=== PATIENT | male | born 1945 | race Hispanic/Latino ===

== ENCOUNTER 2019-05-16 11:30 | Day surgery (SDC) | payer OTHER, SELFPAY ==
[2019-05-16] VITALS (8 sets, daily range): BP systolic 120–155; BP diastolic 68–85; PULSE 61–90; RESP 14–20; TEMP 36.6–37.1; O2SAT 95–97; BMI 33.7
--- NOTE | 2019-05-16 | DI.RAD.S_ITS ---
PROCEDURE: XR KUB INDICATIONS: LEFT URETAL STENT TECHNIQUE: One view of the abdomen acquired. COMPARISON: None. FINDINGS: Single spot fluoroscopic image demonstrating partially visualized left ureteral stent. Dictated by: Tarik Crowder M.D. on 05/16/2019 at 17:01 Approved by: Tarik Crowder M.D. on 05/16/2019 at 17:01
[2019-05-16] MEDS: ACETAMINOPHEN 325 MG TABLET 975 MG PO (13:05)
[2019-05-16] MEDS: GABAPENTIN 300 MG CAPSULE PO (13:05)
[2019-05-16] MEDS: LACTATED RINGERS 1,000 ML 42 ML IV (13:09)
[2019-05-16] MEDS: CEFAZOLIN 2 GM/100 ML FROZ.PIGGY IV (15:02)
--- NOTE | 2019-05-16 15:41 | SUR.OPER ---
Lithotomy on padded OR bed, head on pillow, arms secured on padded arm boards at <90 degrees abduction. Legs secured in padded yellow fins stirrups.
--- NOTE | 2019-05-16 16:17 | P.OP_ITS ---
Operative Date/Time/Diagnoses Date of procedure: 05/16/19 Time of procedure: 16:17 Pre-op diagnosis: 8 mm obstructing left distal ureteral calculus. Post-op diagnosis: same Procedure & Clinicians Procedure: 1. Cystoscopy and left ureteroscopic laser lithotripsy. 2. Cystoscopy and placement of left ureteral stent (5 [place] by 24 cm) Same procedure as scheduled: Yes Indications: Obstructing 8 mm left distal ureteral calculus. Surgeon: Shanna Tran Click Yes if Unassisted: Yes Anesthesia Type: General Operative Notes Findings: Urethra normal. External sphincter coapted. Prostate 4 cm length with moderate lateral lobe hyperplasia. Bladder demonstrated 1+ trabeculation and normal orifices bilaterally. The index stone was encountered in the expected location. Closure Type: not applicable Specimen(s): other (Laser stone fragments from left distal ureter) Applied: other (Five [place] by 24 cm double-J ureteral stent) Estimated Blood Loss (mL): 0 Blood products transfused: none Tourniquet time (min): 0 Procedure in detail: The patient was positioned in supine and was administered general anesthesia. The lower abdomen genitalia and groin were then prepped and draped in sterile fashion. The 22 [place] panendoscope was then passed some lower urinary tract with the findings as described above. Next a 0.35 [place] guidewire was advanced into the left collecting system under direct and flu oroscopic guidance. A 15 [place] by 6 cm balloon dilating catheter was then selected and advanced over the guidewire. The balloon was positioned across the left ureteral vesicle junction and was inflated to 18 atmospheres for a period of of 5 minutes. The balloon was then deflated and was backloaded off the guidewire the semi-rigid ureteroscope was then prepared and was then advanced into the lower urinary tract and then into the left distal ureter with findings as described above all operating room personnel and patient were then fitted with laser safety eyewear. A 272 micron laser fiber was then selected and advanced through the working channel of the ureteroscope. Lithotripsy was then commenced with excellent subsequent stone fragmentation. The vast majority of fragments were then cleared from the ureteral lumen proper by hydrostatic and mechanical method. The ureteroscope was then removed and the panendoscope was then front loaded on the guidewire a 5 [place] by 24 cm double-J ureteral stent was then selected. A retrieval line was left attached. It was then advanced over the guidewire under direct and fluoroscopic guidance and and positioned satisfactorily in the left upper collecting system. The bladder was then drained a final time and all instrumentation was removed. The patient was then repositioned in supine was awakened and transferred to the recovery room on a gurney in stable condition. Complications: none Post-operative Condition: stable Disposition: PACU Plan for aftercare: 1. Ureteral stent removal in my office in 5-7 days. 2. Schedule follow-up appointment in 6-8 weeks with KUB and metabolic stone risk evaluation.
--- NOTE | 2019-05-16 17:49 | SUR.PHASEII ---
voided 125 ml wine colored urine without difficulty.
--- NOTE | 2019-05-16 17:51 | SUR.PHASEII ---
ready for discharge awaiting spouses return from pharmacy.
== END 2019-05-16 18:02 | disposition home or self-care (01) ==
PROVIDERS: PCP Nurse Practitioner Family; Referring Provider Specialist; Visit Provider Specialist
PROC: (CPT 52356; principal; 2019-05-16 13:30)
DX: N20.1 Calculus of ureter (principal); N40.0 Benign prostatic hyperplasia without lower urinary tract symptoms
CPT/HCPCS: 52356; 74018; 76000; 82365; J0690; J1100; J1885; J2405; J2704